=== PATIENT | male | born 1965 | race American Indian/Alaskan Native ===

== ENCOUNTER 2019-03-22 18:57 | Inpatient (IN) | payer MEDICARE ==
[2019-03-22] MEDS ORDERED: ASPIRIN 325 MG TAB PO ONE (20:06)
--- NOTE | 2019-03-22 20:06 | Emergency Department Report ---
ED Chest Pain HPI - General Chief Complaint: Chest Pain Stated Complaint: CHEST PAIN/SHORTNESS OF BREATH Time Seen by Provider: 03/22/19 19:08 Source: patient, EMS Mode of arrival: Stretcher Limitations: No Limitations - History of Present Illness Initial Comments: 53-year-old male with a past medical history of obesity, renal insuf "13% function as per pt" CHF, diabetes, hypertension presents to the hospital with complaints of chest pain and shortness of breath. Symptoms started at approximately 5:30 PM. Patient was eating and drinking at the time. He developed midsternal pain described as pressure lasted about 30 minutes. Positive associated mild shortness of breath, lightheadedness and diaphoresis. He denies nausea, vomiting, cough, fever, or calf tenderness. Patient is visiting from [place] and arrived here car 3 days ago. Patient is having bilateral leg edema. He has been noncompliance with his Lasix for the past 3 days because it was inconvenient to have to urinate frequently during his vacation. Patient feels this is the cause of his shortness of breath and edema. He reports a negative stress test one year ago no previous history of cardiac. He does not smoke cigarettes, use cocaine, denies family history CAD. Does not take aspirin daily. He thinks his Lasix dose is 20 mg twice a day. He denies history of PE/DVT in the past. Patient received aspirin and nitroglycerin in route. - Related Data Allergies Allergy/AdvReac Type Severity Reaction Status Date / Time No Known Allergies Allergy Verified 03/22/19 22:37 Heart Score - HEART Score History: Moderately suspicious EKG: Non-specific Age: 45-65 Risk factors: > 3 risk factors or hx of atherosclerotic disease Troponin: 1-3x normal limit HEART Score: 6 ED Review of Systems ROS: Stated complaint: CHEST PAIN/SHORTNESS OF BREATH Other details as noted in HPI Comment: All other systems reviewed and negative ED Past Medical Hx - Past Medical History Previous Medical History?: Yes Hx Hypertension: Yes Hx Congestive Heart Failure: Yes Hx Diabetes: Yes - Social History Smoking Status: Never Smoker ED Physical Exam - General Limitations: No Limitations - Other Other exam information: General: No acute distress Head: Atraumatic Eyes: normal appearance ENT: Moist mucous membranes Neck: Normal appearance, no midline tenderness Chest: Clear to auscultation bilaterally, chest wall nontender CV: Regular rate and rhythm Abdomen: Soft, normal bowel sounds, nontender, nondistended, no rebound or guarding. Midline vertical surgical scar Back: Normal inspection Extremity: Normal inspection infection, full range of motion, no calf tenderness. +1+ pitting leg edema Neuro: Alert O x 3, no facial asymmetry, speech clear, no gross motor sensory deficit Psych: Appropriate behavior Skin: No rash ED Course Vital Signs 03/22/19 03/22/19 19:26 19:29 Temperature 98.0 F Pulse Rate 93 H Respiratory 18 20 Rate Blood Pressure 149/69 O2 Sat by Pulse 97 88 Oximetry RADHA score - Radha Score Age > 65: (0) No Aspirin use within the Past 7 Days: (0) No 3 or more CAD Risk Factors: (1) Yes 2 or more Angina events in past 24 hrs: (0) No Known CAD with more than 50% Stenosis: (0) No Elevated Cardiac Markers: (1) Yes ST Deviation Greater than 0.5mm: (0) No RADHA Score: 2 ED Medical Decision Making - Lab Data Result diagrams: 03/22/19 20:32 03/22/19 20:32 Lab Results 03/22/19 03/22/19 03/22/19 Range/Units 20:32 20:32 20:32 WBC 7.9 (4.5-11.0) K/mm3 RBC 3.45 L (3.65-5.03) M/mm3 Hgb 8.9 L (11.8-15.2) gm/dl Hct 27.4 L (35.5-45.6) % MCV 80 L (84-94) fl MCH 26 L (28-32) pg MCHC 33 (32-34) % RDW 16.5 H (13.2-15.2) % Plt Count 259 (140-440) K/mm3 Lymph % (Auto) 13.4 (13.4-35.0) % [place] % (Auto) 8.3 H (0.0-7.3) % Eos % (Auto) 1.8 (0.0-4.3) % Baso % (Auto) 0.9 (0.0-1.8) % Lymph # 1.1 L (1.2-5.4) K/mm3 [place] # 0.7 (0.0-0.8) K/mm3 Eos # 0.1 (0.0-0.4) K/mm3 Baso # 0.1 (0.0-0.1) K/mm3 Seg Neutrophils % 75.6 H (40.0-70.0) % Seg Neutrophils # 6.0 (1.8-7.7) K/mm3 PT 13.7 (12.2-14.9) Sec. INR 1.06 (0.87-1.13) Sodium 140 (137-145) mmol/L Potassium 5.3 H (3.6-5.0) mmol/L Chloride 102.8 (98-107) mmol/L Carbon Dioxide 20 L (22-30) mmol/L Anion Gap 23 mmol/L BUN 63 H (9-20) mg/dL Creatinine 6.0 H (0.8-1.5) mg/dL Estimated GFR 10 ml/min BUN/Creatinine Ratio 11 % Glucose 167 H (75-100) mg/dL Calcium 6.4 L (8.4-10.2) mg/dL Troponin T 0.156 H* (0.00-0.029) ng/mL NT-Pro-B Natriuret Pep 466.3 (0-900) pg/mL - EKG Data -: EKG Interpreted by Wi EKG shows normal: sinus rhythm (88), ST-T waves (lat t wave inv) - EKG Data When compared to previous EKG there are: previous EKG unavailable - Radiology Data Radiology results: image reviewed - Medical Decision Making Patient be admitted to the hospital CHF exacerbation. Renal insufficiency noted with unknown baseline but patient had reports a history of chronic renal disease. Elevated troponin likely secondary to renal insufficiency but cannot rule out CAD given abnormal EKG without previous available comparison. Repeat troponin pending. Patient received aspirin in the ED. Chest pain has resolved at time of disposition. Lasix 40 mg provided in ed Mild hyperkalemia without peak T waves. Lasix IV will help with hyperkalemia - Differential Diagnosis [place], PE, CHF, unstable angina, volume overload Critical Care Time: No Critical care attestation.: If time is entered above; I have spent that time in minutes in the direct care of this critically ill patient, excluding procedure time. ED Disposition Clinical Impression: Chest pain, Obesity, morbid, CHF exacerbation, Noncompliance with medication regimen, Elevated troponin, Hyperkalemia, Renal insufficiency Disposition: OP ADMIT IP TO THIS HOSP Is pt being admited?: Yes Does the pt Need Aspirin: Yes Condition: Stable Time of Disposition: 21:35 (Dr Proctor/hosp)
[2019-03-22 20:47] LABS: Basophils # (Auto) 0.1 K/mm3 (0.0-0.1); Basophils % (Auto) 0.9 % (0.0-1.8); Eosinophils # (Auto) 0.1 K/mm3 (0.0-0.4); Eosinophils % (Auto) 1.8 % (0.0-4.3); Hematocrit 27.4 % (35.5-45.6); Hemoglobin 8.9 gm/dl (11.8-15.2); Lymphocytes # (Auto) 1.1 K/mm3 (1.2-5.4); Lymphocytes % (Auto) 13.4 % (13.4-35.0); Mean Corpuscular HGB Conc 33 % (32-34); Mean Corpuscular Volume 80 fl (84-94); Monocytes # (Auto) 0.7 K/mm3 (0.0-0.8); Monocytes % (Auto) 8.3 % (0.0-7.3); Platelet Count 259 K/mm3 (140-440); Red Blood Count 3.45 M/mm3 (3.65-5.03); Red Cell Distribution Width 16.5 % (13.2-15.2)
[2019-03-22 20:58] LABS: INR 1.06 (0.87-1.13)
[2019-03-22 21:10] LABS: Calcium 6.4 mg/dL (8.4-10.2)
[2019-03-22] MEDS ORDERED: FUROSEMIDE 40 MG/4 ML INJ IV ONE (21:25)
[2019-03-22 21:38] LABS: Chol/HDL Ratio 3.57 %
--- NOTE | 2019-03-22 22:36 | History and Physical Report ---
History of Present Illness Date of examination: 03/22/19 History of present illness: 53-year-old man with a history of hypertension, diabetes, CHF, chronic kidney disease, obesity comes emergency room with complaints of shortness of breath and chest pain that started today. Patient recently traveled from [place], he has not taken his Lasix in 3 days because of the inconvenience of increased urination. Denies PND, orthopnea. Complains of chest pain in the epigastric area which he describes a sharp pain, intermittent over 20 minutes, intensity 5/10, no radiation, cannot identify exacerbating factors. Denies nausea vomiting, diaphoresis. He had a stress test 1 year ago which was negative. He has chronic leg pain which is not worsened. Patient has been admitted for CHF exacerbation Review Of Systems: Constitutional: no weight loss, fever, chills Ears, eyes, nose, mouth and throat: no nasal congestion, no nasal discharge, no sinus pressure, blurry vision, diplopia Neck: No neck pain or rigidity. Cardiovascular: No palpitations Respiratory: No cough Gastrointestinal: No hematochezia, abdominal pain Genitourinary : no dysuria, frequency , hematuria Musculoskeletal: no muscle ache , joint pain Integumentary: no rash, no pruritis Neurological: no parathesias, focal weakness Endocrine: no cold or heat intolerance, no polyuria or polydipsia Hematologic/Lymphatic: no easy bruising, no easy bleeding, no gland swelling Allergic/Immunologic: no urticaria, no angioedema. PAST MEDICAL HISTORY:hypertension, diabetes, CHF, chronic kidney disease, obesity PAST SURGICAL HISTORY: abdominal surgery FAMILY HISTORY:hypertension, diabetes SOCIAL HISTORY: Denies tobacco, drugs, alcohol Medications and Allergies Allergies Allergy/AdvReac Type Severity Reaction Status Date / Time No Known Allergies Allergy Verified 03/22/19 22:37 Home Medications Medication Instructions Recorded Confirmed Last Taken Type Furosemide [Lasix TAB] 40 mg PO QDAY 03/22/19 03/22/19 Unknown History labetaloL [Labetalol 100mg TAB] 50 mg PO BID 03/22/19 03/22/19 Unknown History Exam - Physical Exam Narrative exam: General Apperance: The patient sitting in bed no acute distress HEENT: Normocephalic, atraumatic. Pupils equally round and reactive to light, extraocular movement intact, and no sclericterus or JVD or thyromegaly or nodule. Neck supple, no carotid bruit, mucous membranes dry, no exudate or erythema Heart: S1-S2, regular is rhythm Lungs: Crackles bilaterally, breathing comfortable Abdomen: Positive bowel sounds, soft, nontender, nondistended, no organomegaly Extremities: 2+ edema, no cyanosis clubbing Skin: no rash, nodule, warm and dry Neuro:CN 2 -12 intact, motor/sensory intact, speech is fluent - Constitutional Vitals: Temp Pulse Resp BP Pulse Ox 98.0 F 93 H 20 149/69 88 03/22/19 19:26 03/22/19 19:26 03/22/19 19:29 03/22/19 19:26 03/22/19 19:29 Results - Labs CBC & Chem 7: 03/22/19 20:32 03/22/19 20:32 Labs: Abnormal lab results 03/22/19 03/22/19 Range/Units 20:32 20:32 RBC 3.45 L (3.65-5.03) M/mm3 Hgb 8.9 L (11.8-15.2) gm/dl Hct 27.4 L (35.5-45.6) % MCV 80 L (84-94) fl MCH 26 L (28-32) pg RDW 16.5 H (13.2-15.2) % [place] % (Auto) 8.3 H (0.0-7.3) % Lymph # 1.1 L (1.2-5.4) K/mm3 Seg Neutrophils % 75.6 H (40.0-70.0) % Potassium 5.3 H (3.6-5.0) mmol/L Carbon Dioxide 20 L (22-30) mmol/L BUN 63 H (9-20) mg/dL Creatinine 6.0 H (0.8-1.5) mg/dL Glucose 167 H (75-100) mg/dL Calcium 6.4 L (8.4-10.2) mg/dL Troponin T 0.156 H* (0.00-0.029) ng/mL Triglycerides 184 H (2-149) mg/dL HDL Cholesterol 33 L (40-59) mg/dL - Imaging and Cardiology EKG: report reviewed Chest x-ray: report reviewed Assessment and Plan Assessment CHF exacerbation, acute on chronic, probably diastolic Diurese with IV Lasix, start beta-velma, aspirin No IVANA inhibitor secondary to renal dysfunction, unknown renal baseline Check cardiac enzymes, d-dimer echo Monitor I's and O's, daily weights Chest pain with elevated troponin Consult cardiology, continue to monitor cardiac enzymes recent stress test a year ago Hyperkalemia Status post IV Lasix, hold Kayexalate for now Monitor potassium level Hypertension Continue antihypertensives Diabetes Check fingersticks initiate insulin sliding scale Restart outpatient medication Chronic kidney disease Monitor renal function Obesity DVT prophylaxis
[2019-03-22] MEDS ORDERED: ONDANSETRON 4 MG/2 ML INJ IV PRN (22:41)
[2019-03-22] MEDS ORDERED: ACETAMINOPHEN 325 MG TAB PO PRN (22:41)
--- NOTE | 2019-03-22 23:09 | XRay Report ---
CHEST 2 VIEWS INDICATION / CLINICAL INFORMATION: Chest Pain, sob. COMPARISON: None available. FINDINGS: SUPPORT DEVICES: None. HEART / MEDIASTINUM: No significant abnormality. LUNGS / PLEURA: Lung volumes are reduced with secondary crowding of the central vasculature and bibas ilar atelectasis. No significant pleural effusion. No pneumothorax. ADDITIONAL FINDINGS: Degenerative changes are present along the spine. No significant additional find ings. IMPRESSION: 1. No acute abnormality of the chest. 2. Additional findings as above. Signer Name: Mayank Jett MD Signed: 03/22/2019 11:04 PM Workstation Name: [id number]
[2019-03-23 01:11] LABS: Creatine Kinase MB 8.9 ng/mL (0.0-4.0)
[2019-03-23 03:28] LABS: Basophils # (Auto) 0.1 K/mm3 (0.0-0.1); Basophils % (Auto) 0.7 % (0.0-1.8); Eosinophils # (Auto) 0.2 K/mm3 (0.0-0.4); Eosinophils % (Auto) 2.5 % (0.0-4.3); Hematocrit 27.8 % (35.5-45.6); Lymphocytes # (Auto) 1.5 K/mm3 (1.2-5.4); Lymphocytes % (Auto) 20.2 % (13.4-35.0); Mean Corpuscular HGB Conc 32 % (32-34); Mean Corpuscular Volume 81 fl (84-94); Monocytes # (Auto) 0.7 K/mm3 (0.0-0.8); Monocytes % (Auto) 9.1 % (0.0-7.3); Platelet Count 276 K/mm3 (140-440); Red Blood Count 3.45 M/mm3 (3.65-5.03); Red Cell Distribution Width 16.2 % (13.2-15.2)
[2019-03-23 03:59] LABS: Calcium 6.3 mg/dL (8.4-10.2)
[2019-03-23] MEDS: FUROSEMIDE 40 MG/4 ML INJ IV SCH ×2 (05:52→17:07)
[2019-03-23 07:13] LABS: Creatine Kinase MB 8.5 ng/mL (0.0-4.0)
[2019-03-23] MEDS ORDERED: DEXTROSE 50% IN WATER (25GM) 50 ML SYRINGE IV PRN (08:47)
--- NOTE | 2019-03-23 08:50 | Progress Note ---
Assessment and Plan Assessment and plan: Patient is a 53-year-old man with a history of hypertension, diabetes, CHF, chronic kidney disease, obesity comes emergency room with complaints of shortness of breath and chest pain that started today. Patient recently traveled from [place], he has not taken his Lasix in 3 days because of the inconvenience of increased urination. CHF exacerbation, acute on chronic, diastolic Diurese with IV Lasix, start beta-velma, aspirin No IVANA inhibitor secondary to renal dysfunction, unknown renal baseline Check cardiac enzymes, d-dimer echo Monitor I's and O's, daily weights Chest pain with elevated troponin c/w NSTEMI Consult cardiology, continue to monitor cardiac enzymes stress test on MONDAY per Cardiology Hyperkalemia Status post IV Lasix, hold Kayexalate for now Monitor potassium level Hypertension Continue antihypertensives Diabetes melltius Check fingersticks initiate insulin sliding scale Restart outpatient medication Chronic kidney disease stage 3, Monitor renal function Obesity DVT prophylaxis Disposition: continue inpatient care, STRESS TEST on Monday per Cardiology History Interval history: Patient was seen and examined. Follow-up on current diagnosis. No overnight events reported to me. Patient denies any chest pain, shortness breath, nausea/vomiting or severe headaches. Imaging, nursing note, chart, labs and old chart reviewed. Discussed with patient. Hospitalist Physical - Physical exam Narrative exam: Gen: WDWN, NAD, Awake, Alert, Orientated HEENT: NCAT, EOMI, PERRL, OP Clear Neck: supple, no adenopathy, no thyromegaly, no JVD CVS/Heart: RRR, normal S1S2, pulses present bilaterally Chest/Lungs: diminished bs bilateral, Symmetrical chest expansion, good air entry bilaterally GI/Abdomen: soft, NTND, good bowel sounds, no guarding or rebound /Bladder: no suprapubic tenderness, no CVA or paraspinal tenderness Extermity/Skin: no c/c/e, no obvious rash MSK: FROM x 4 Neuro: CN 2-12 grossly intact, no new focal deficits Psych: calm - Constitutional Vitals: Temp Pulse Resp BP Pulse Ox 98.3 F 92 H 27 H 137/69 96 03/23/19 05:00 03/23/19 05:00 03/23/19 05:00 03/23/19 05:00 03/23/19 05:00 Results - Labs CBC & Chem 7: 03/23/19 03:00 03/23/19 03:00 Labs: Laboratory Last Values WBC 7.6 K/mm3 (4.5-11.0) 03/23/19 03:00 RBC 3.45 M/mm3 (3.65-5.03) L 03/23/19 03:00 Hgb 9.0 gm/dl (11.8-15.2) L 03/23/19 03:00 Hct 27.8 % (35.5-45.6) L 03/23/19 03:00 MCV 81 fl (84-94) L 03/23/19 03:00 MCH 26 pg (28-32) L 03/23/19 03:00 MCHC 32 % (32-34) 03/23/19 03:00 RDW 16.2 % (13.2-15.2) H 03/23/19 03:00 Plt Count 276 K/mm3 (140-440) 03/23/19 03:00 Lymph % (Auto) 20.2 % (13.4-35.0) 03/23/19 03:00 [place] % (Auto) 9.1 % (0.0-7.3) H 03/23/19 03:00 Eos % (Auto) 2.5 % (0.0-4.3) 03/23/19 03:00 Baso % (Auto) 0.7 % (0.0-1.8) 03/23/19 03:00 Lymph # 1.5 K/mm3 (1.2-5.4) 03/23/19 03:00 [place] # 0.7 K/mm3 (0.0-0.8) 03/23/19 03:00 Eos # 0.2 K/mm3 (0.0-0.4) 03/23/19 03:00 Baso # 0.1 K/mm3 (0.0-0.1) 03/23/19 03:00 Seg Neutrophils % 67.5 % (40.0-70.0) 03/23/19 03:00 Seg Neutrophils # 5.1 K/mm3 (1.8-7.7) 03/23/19 03:00 PT 13.7 Sec. (12.2-14.9) 03/22/19 20:32 INR 1.06 (0.87-1.13) 03/22/19 20:32 D-Dimer 526.09 ng/mlDDU (0-234) H 03/23/19 00:33 Sodium 142 mmol/L (137-145) 03/23/19 03:00 Potassium 5.5 mmol/L (3.6-5.0) H 03/23/19 03:00 Chloride 105.4 mmol/L (98-107) 03/23/19 03:00 Carbon Dioxide 24 mmol/L (22-30) 03/23/19 03:00 Anion Gap 18 mmol/L 03/23/19 03:00 BUN 62 mg/dL (9-20) H 03/23/19 03:00 Creatinine 5.9 mg/dL (0.8-1.5) H 03/23/19 03:00 Estimated GFR 12 ml/min 03/23/19 03:00 BUN/Creatinine Ratio 11 % 03/23/19 03:00 Glucose 192 mg/dL (75-100) H 03/23/19 03:00 Calcium 6.3 mg/dL (8.4-10.2) L 03/23/19 03:00 Total Creatine Kinase 860 units/L (55-170) H 03/23/19 06:14 CK-MB (CK-2) 8.5 ng/mL (0.0-4.0) H 03/23/19 06:14 CK-MB (CK-2) Rel Index 0.9 (0-4) 03/23/19 06:14 Troponin T 0.141 ng/mL (0.00-0.029) H* 03/23/19 06:14 NT-Pro-B Natriuret Pep 466.3 pg/mL (0-900) 03/22/19 20:32 Triglycerides 184 mg/dL (2-149) H 03/22/19 20:32 Cholesterol 118 mg/dL (50-199) 03/22/19 20:32 LDL Cholesterol Direct 69 mg/dL (50-130) 03/22/19 20:32 HDL Cholesterol 33 mg/dL (40-59) L 03/22/19 20:32 Cholesterol/HDL Ratio 3.57 % 03/22/19 20:32 Active Medications - Current Medications Current Medications: Generic Name Dose Route Start Last Admin Trade Name Freq PRN Reason Stop Dose Admin Acetaminophen 650 mg 03/22/19 22:41 Tylenol PO Q4H PRN Pain MILD(1-3)/Fever >100.5/VIDES Aspirin 81 mg 03/23/19 10:00 Baby Aspirin PO QDAY [facility] Dextrose 50 ml 03/23/19 08:47 D50w (25gm) Syringe IV Q30MIN PRN Hypoglycemia Protocol Enoxaparin Sodium 30 mg 03/23/19 10:00 Enoxaparin SUB-Q QDAY [facility] Furosemide 40 mg 03/23/19 06:00 03/23/19 05:52 Lasix IV 40 mg BID@0600,1800 [facility] Administration Insulin Human Regular 0 units 03/23/19 11:30 Humulin R SUB-Q ACHS [facility] Protocol Metoprolol Tartrate 25 mg 03/23/19 10:00 Metoprolol PO BID [facility] Ondansetron HCl 4 mg 03/22/19 22:41 Zofran IV Q8H PRN Nausea And Vomiting Sodium Chloride 10 ml 03/23/19 10:00 Sodium Chloride Flush Syringe 10 Ml IV BID FRANCIS Sodium Chloride 10 ml 03/22/19 22:41 Sodium Chloride Flush Syringe 10 Ml IV PRN PRN LINE FLUSH
[2019-03-23] MEDS: METOPROLOL TARTRATE 25 MG TAB PO SCH ×2 (10:09→21:56)
[2019-03-23] MEDS: ENOXAPARIN 30 MG/0.3 ML INJ SUB-Q SCH (10:10)
[2019-03-23] MEDS: ASPIRIN 81 MG TAB CHEW PO SCH (10:10)
[2019-03-23] MEDS: INSULIN REGULAR, HUMAN 100 UNITS/1 ML SUB-Q SCH ×3 (12:46→22:13)
--- NOTE | 2019-03-23 13:52 | Consultation ---
History of Present Illness Consult date: 03/23/19 Requesting physician: CLIFFORD ZURITA Consult reason: chest pain, congestive heart failure History of present illness: Mr. Barbosa is a 53 y/o male who presented to [facility] with SOB and chest pain that began yesterday evening. He reports he was eating at a restaurant and suddenly felt dizzy and lightheaded, almost falling in the bathroom. He experienced sharp, midsternal chest pain at that time that re solved with rest. When he returned home, he became acutely SOB and again experienced similar sharp chest pain. His medical history is significant for hypertension, CHF, CKD and type 2 diabetes; of note, he reports three days of noncompliance with his home Lasix. He was [place] to [place] and did not want to void frequently. 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 EKG NAF, but troponins elevated to 0.156, 0.134 and 0.141. Echocardiogram on 03/23/19 found an EF of 55 percent, LVH and LA dilation. Past History Past Medical History: diabetes, heart failure, hypertension, other (obesity, CKD) Medications and Allergies Allergies Allergy/AdvReac Type Severity Reaction Status Date / Time No Known Allergies Allergy Verified 03/22/19 22:37 Home Medications Medication Instructions Recorded Confirmed Last Taken Type Furosemide [Lasix TAB] 40 mg PO QDAY 03/22/19 03/22/19 Unknown History labetaloL [Labetalol 100mg TAB] 50 mg PO BID 03/22/19 03/22/19 Unknown History Active Meds: Active Medications Acetaminophen (Tylenol) 650 mg PO Q4H PRN PRN Reason: Pain MILD(1-3)/Fever >100.5/VIDES Aspirin (Baby Aspirin) 81 mg PO QDAY [facility] Last Admin: 03/23/19 10:10 Dose: 81 mg Documented by: Dextrose (D50w (25gm) Syringe) 50 ml IV Q30MIN PRN; Protocol PRN Reason: Hypoglycemia Enoxaparin Sodium (Enoxaparin) 30 mg SUB-Q QDAY [facility] Last Admin: 03/23/19 10:10 Dose: 30 mg Documented by: Furosemide (Lasix) 40 mg IV BID@0600,1800 [facility] Last Admin: 03/23/19 05:52 Dose: 40 mg Documented by: Insulin Human Regular (Humulin R) 0 units SUB-Q ACHS [facility]; Protocol Last Admin: 03/23/19 12:46 Dose: 3 units Documented by: Metoprolol Tartrate (Metoprolol) 25 mg PO BID [facility] Last Admin: 03/23/19 10:09 Dose: 25 mg Documented by: Ondansetron HCl (Zofran) 4 mg IV Q8H PRN PRN Reason: Nausea And Vomiting Sodium Chloride (Sodium Chloride Flush Syringe 10 Ml) 10 ml IV BID [facility] Last Admin: 03/23/19 10:11 Dose: 10 ml Documented by: Sodium Chloride (Sodium Chloride Flush Syringe 10 Ml) 10 ml IV PRN PRN PRN Reason: LINE FLUSH Review of Systems All systems: negative Cardiovascular: chest pain, shortness of breath Physical Examination Last Vital Signs Temp 98.3 F 03/23/19 05:00 Pulse 91 H 03/23/19 10:09 Resp 18 03/23/19 11:40 BP 158/78 03/23/19 10:09 Pulse Ox 98 03/23/19 11:40 General appearance: no acute distress HEENT: Positive: PERRL Neck: Positive: neck supple Cardiac: Positive: Reg Rate and Rhythm Lungs: Positive: Decreased Breath Sounds Neuro: Positive: Grossly Intact Abdomen: Positive: Firm, Distended, Other Male genitourinary: Positive: deferred Skin: Positive: Clear Musculoskeletal: Normal Range of Motion Extremities: Present: edema, +1 Edema Results 03/23/19 03:00 03/23/19 03:00 Cardiac Enzymes 03/23/19 03/23/19 Range/Units 00:33 06:14 CK-MB (CK-2) 8.9 H 8.5 H (0.0-4.0) ng/mL Coagulation 03/22/19 Range/Units 20:32 PT 13.7 (12.2-14.9) Sec. INR 1.06 (0.87-1.13) Lipids 03/22/19 Range/Units 20:32 Triglycerides 184 H (2-149) mg/dL Cholesterol 118 (50-199) mg/dL HDL Cholesterol 33 L (40-59) mg/dL Cholesterol/HDL Ratio 3.57 % CBC 03/22/19 03/23/19 Range/Units 20:32 03:00 WBC 7.9 7.6 (4.5-11.0) K/mm3 RBC 3.45 L 3.45 L (3.65-5.03) M/mm3 Hgb 8.9 L 9.0 L (11.8-15.2) gm/dl Hct 27.4 L 27.8 L (35.5-45.6) % Plt Count 259 276 (140-440) K/mm3 Lymph # 1.1 L 1.5 (1.2-5.4) K/mm3 [place] # 0.7 0.7 (0.0-0.8) K/mm3 Eos # 0.1 0.2 (0.0-0.4) K/mm3 Baso # 0.1 0.1 (0.0-0.1) K/mm3 Comprehensive Metabolic Panel 03/22/19 03/23/19 Range/Units 20:32 03:00 Sodium 140 142 (137-145) mmol/L Potassium 5.3 H 5.5 H (3.6-5.0) mmol/L Chloride 102.8 105.4 (98-107) mmol/L Carbon Dioxide 20 L 24 (22-30) mmol/L BUN 63 H 62 H (9-20) mg/dL Creatinine 6.0 H 5.9 H (0.8-1.5) mg/dL Glucose 167 H 192 H (75-100) mg/dL Calcium 6.4 L 6.3 L (8.4-10.2) mg/dL - Imaging and Cardiology Echo: report reviewed (03/23/19: EF 55%, LA dilation, LVH) - EKG Interpretation EKG: sinus rhythm EKG interpretations - Telemetry EKG Rhythm: Sinus Rhythm Repolarization changes or abnormalities: nonspecific abnormality, ST segment, and/or T wave Assessment and Plan Mr. Barbosa is a 53 y/o male admitted with SOB and CP. Troponin elevation c/w NSTEMI, but cardiac etiology is unclear. Will obtain follow-up stress test on Monday, since patient reports he has not undergone one in several years. Will add hydralazine to optimize blood pressure control. Continue diuresis and other cardiac management for now. Further recommendations pending hospital course. The patient has been seen in conjunction with Dr. Hunt, who agrees with the assessment and plan. - Patient Problems (1) NSTEMI (non-ST elevated myocardial infarction) Current Visit: Yes Status: Acute (2) Acute on chronic heart failure Current Visit: Yes Status: Acute (3) Chest pain Current Visit: Yes Status: Acute (4) Noncompliance with medication regimen Current Visit: Yes Status: Acute (5) Renal insufficiency Current Visit: Yes Status: Acute (6) Obesity, morbid Current Visit: Yes Status: Chronic (7) Diabetes Current Visit: Yes Status: Chronic (8) Hypertension Current Visit: Yes Status: Chronic
[2019-03-23] MEDS: hydrALAZINE 25 MG TAB PO SCH ×2 (14:13→21:56)
[2019-03-24] MEDS: FUROSEMIDE 40 MG/4 ML INJ IV SCH ×2 (05:25→17:49)
[2019-03-24] MEDS: hydrALAZINE 25 MG TAB PO SCH ×3 (05:27→21:18)
[2019-03-24] MEDS: INSULIN REGULAR, HUMAN 100 UNITS/1 ML SUB-Q SCH ×4 (08:00→22:35)
[2019-03-24] MEDS: ASPIRIN 81 MG TAB CHEW PO SCH (10:40)
[2019-03-24] MEDS: ENOXAPARIN 30 MG/0.3 ML INJ SUB-Q SCH (10:40)
[2019-03-24] MEDS: METOPROLOL TARTRATE 25 MG TAB PO SCH ×2 (10:40→21:23)
--- NOTE | 2019-03-24 12:41 | Progress Note ---
Assessment and Plan Cardiac status is improved. Will schedule Lexiscan stress test for tomorrow; however, body habitus may be prohibitive. Will obtain BMP today and tomorrow. Will increase hydralazine. May possibly transition to PO diuretics tomorrow. Continue other cardiac management for now. - Patient Problems (1) NSTEMI (non-ST elevated myocardial infarction) Current Visit: Yes Status: Acute (2) Acute on chronic heart failure Current Visit: Yes Status: Acute (3) Chest pain Current Visit: Yes Status: Acute (4) Noncompliance with medication regimen Current Visit: Yes Status: Acute (5) Renal insufficiency Current Visit: Yes Status: Acute (6) Obesity, morbid Current Visit: Yes Status: Chronic (7) Diabetes Current Visit: Yes Status: Chronic (8) Hypertension Current Visit: Yes Status: Chronic Subjective Date of service: 03/24/19 Interval history: The patient is lying in bed in [facility]. He is now free of chest pain and has no other complaints. SR in 80s on telemetry. Objective Last Vital Signs Temp 98.1 F 03/24/19 08:13 Pulse 87 03/24/19 08:13 Resp 20 03/24/19 08:13 BP 147/67 03/24/19 08:13 Pulse Ox 97 03/24/19 08:26 - Physical Examination General: No Apparent Distress HEENT: Positive: PERRL Neck: Positive: neck supple Cardiac: Positive: Reg Rate and Rhythm Lungs: Positive: Decreased Breath Sounds Neuro: Positive: Grossly Intact Abdomen: Positive: Soft /Rectal: Other (deferred) Skin: Positive: Clear Musculoskeletal: Normal Range of Motion Extremities: Present: edema, +1 Edema - Imaging and Cardiology EKG: report reviewed Echo: report reviewed (03/23/19: EF 55%, LA dilation, LVH) - Telemetry EKG Rhythm: Sinus Rhythm Repolarization changes or abnormalities: nonspecific abnormality, ST segment, and/or T wave
--- NOTE | 2019-03-24 16:24 | Consultation ---
History of Present Illness - Reason for Consult Consult date: 03/24/19 chronic renal failure - History of Present Illness Mr. Barbosa is a 53yo with chronic kidney disease, CHF and hypertension who presented to the ED on Mar 22 with complaints of chest pain and shortness of breath. He reports sternal chest pressure associated with SOB. He denies nausea, vomiting. He denies cough and fever. He reports chronic leg edema. Mr. Barbosa reports a 20 year history of HTN and DM. He reports that CKD was diagnosed appx 3 years ago. He is followed by a puddler pile driving, Dr Hurley, in [place] where he resides. Mr. Barbosa reports that he is "on the verge of dialysis" and sees his puddler pile driving monthly. His last visit was prior . He denies a family history of kidney disease. Presently, he reports SOB has improved. Nephrology consultation requested this AM by primary team. Past History Past Medical History: diabetes, heart failure, hypertension, other (obesity, CKD) Medications and Allergies Allergies Allergy/AdvReac Type Severity Reaction Status Date / Time No Known Allergies Allergy Verified 03/22/19 22:37 Home Medications Medication Instructions Recorded Confirmed Last Taken Type Furosemide [Lasix TAB] 40 mg PO QDAY 03/22/19 03/22/19 Unknown History labetaloL [Labetalol 100mg TAB] 50 mg PO BID 03/22/19 03/22/19 Unknown History Active Meds: Active Medications Acetaminophen (Tylenol) 650 mg PO Q4H PRN PRN Reason: Pain MILD(1-3)/Fever >100.5/VIDES Aspirin (Baby Aspirin) 81 mg PO QDAY [facility] Last Admin: 03/24/19 10:40 Dose: 81 mg Documented by: Dextrose (D50w (25gm) Syringe) 50 ml IV Q30MIN PRN; Protocol PRN Reason: Hypoglycemia Enoxaparin Sodium (Enoxaparin) 30 mg SUB-Q QDAY [facility] Last Admin: 03/24/19 10:40 Dose: 30 mg Documented by: Furosemide (Lasix) 40 mg IV BID@0600,1800 [facility] Last Admin: 03/24/19 05:25 Dose: 40 mg Documented by: Hydralazine HCl (Apresoline) 50 mg PO Q8HR [facility] Insulin Human Regular (Humulin R) 0 units SUB-Q [facility]; Protocol Last Admin: 03/24/19 13:00 Dose: 2 units Documented by: Metoprolol Tartrate (Metoprolol) 25 mg PO BID [facility] Last Admin: 03/24/19 10:40 Dose: 25 mg Documented by: Ondansetron HCl (Zofran) 4 mg IV Q8H PRN PRN Reason: Nausea And Vomiting Sodium Chloride (Sodium Chloride Flush Syringe 10 Ml) 10 ml IV BID [facility] Last Admin: 03/24/19 15:38 Dose: 10 ml Documented by: Sodium Chloride (Sodium Chloride Flush Syringe 10 Ml) 10 ml IV PRN PRN PRN Reason: LINE FLUSH Review of Systems All systems: negative Exam - Vital Signs Vital signs: Vital Signs Pulse Resp Pulse Ox 93 H 15 97 03/22/19 19:22 03/22/19 19:22 03/22/19 19:22 - General Appearance General appearance: well-developed, well-nourished, obese EENT: ATNC Respiratory: Clear to Ascultation Heart: regular, S1S2 Gastrointestinal: Present: obese Integumentary: no rash, warm and dry Neurologic: no focal deficit, alert and oriented x3 Musculoskeletal: Present: other (1+ edema) Psychiatric: cooperative Results - Lab Results 03/23/19 03:00 03/23/19 03:00 Most recent lab results Calcium 6.3 mg/dL (8.4-10.2) L 03/23/19 03:00 Assessment and Plan Impression: * 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 Given body habitus, eGFR likely underestimates patient's renal function. Continue close monitoring. * Continue IV diuresis * Cardiology recs noted - for stress test tomorrow * Medical management of electrolytes * Renal diet * Obtain iron stores w/ AM labs * Obtain PTH * Start Drisdol weekly and calcitriol * Dose medications for renal function * Avoid potential nephrotoxins * Patient resides in [place] where he plans to return on Apr 06. Advised close follow up with his puddler pile driving.
--- NOTE | 2019-03-24 16:35 | Progress Note ---
Assessment and Plan Assessment and plan: Patient is a 53-year-old man with a history of hypertension, diabetes, CHF, chronic kidney disease, obesity comes emergency room with complaints of shortness of breath and chest pain that started today. Patient recently traveled from [place], he has not taken his Lasix in 3 days because of the inconvenience of increased urination. CHF exacerbation, acute on chronic, diastolic Diurese with IV Lasix, start beta-velma, aspirin No IVANA inhibitor secondary to renal dysfunction, unknown renal baseline Check cardiac enzymes, d-dimer echo Monitor I's and O's, daily weights Chest pain with elevated troponin c/w NSTEMI Consult cardiology, continue to monitor cardiac enzymes stress test on MONDAY per Cardiology Hyperkalemia Status post IV Lasix, hold Kayexalate for now Monitor potassium level Hypertension Continue antihypertensives Diabetes mellitus Check fingersticks initiate insulin sliding scale Restart outpatient medication Chronic kidney disease stage 3, Monitor renal function Obesity DVT prophylaxis Disposition: continue inpatient care, STRESS TEST on Monday per Cardiology trying to wean off 2 liters nasal canula, d/w nursing History Interval history: Patient was seen and examined. Follow-up on current diagnosis. No overnight events reported to me. Patient denies any chest pain, shortness breath, nausea/vomiting or severe headaches. Imaging, nursing note, chart, labs and old chart reviewed. Discussed with patient. Hospitalist Physical - Physical exam Narrative exam: Gen: WDWN, NAD, Awake, Alert, Orientated, bmi 41.1 HEENT: NCAT, EOMI, PERRL, OP Clear Neck: supple, no adenopathy, no thyromegaly, no JVD CVS/Heart: RRR, normal S1S2, pulses present bilaterally Chest/Lungs: diminished bs bilateral, Symmetrical chest expansion, good air entry bilaterally GI/Abdomen: soft, large protuberant abdomen, good bowel sounds, no guarding or rebound /Bladder: no suprapubic tenderness, no CVA or paraspinal tenderness Extermity/Skin: trace leg edema, no obvious rash MSK: FROM x 4 Neuro: CN 2-12 grossly intact, no new focal deficits Psych: calm - Constitutional Vitals: Temp Pulse Resp BP Pulse Ox 98.1 F 87 20 147/67 97 03/24/19 08:13 03/24/19 08:13 03/24/19 08:13 03/24/19 08:13 03/24/19 08:26 General appearance: Present: no acute distress Results - Labs CBC & Chem 7: 03/23/19 03:00 03/23/19 03:00 Labs: Laboratory Last Values WBC 7.6 K/mm3 (4.5-11.0) 03/23/19 03:00 RBC 3.45 M/mm3 (3.65-5.03) L 03/23/19 03:00 Hgb 9.0 gm/dl (11.8-15.2) L 03/23/19 03:00 Hct 27.8 % (35.5-45.6) L 03/23/19 03:00 MCV 81 fl (84-94) L 03/23/19 03:00 MCH 26 pg (28-32) L 03/23/19 03:00 MCHC 32 % (32-34) 03/23/19 03:00 RDW 16.2 % (13.2-15.2) H 03/23/19 03:00 Plt Count 276 K/mm3 (140-440) 03/23/19 03:00 Lymph % (Auto) 20.2 % (13.4-35.0) 03/23/19 03:00 [place] % (Auto) 9.1 % (0.0-7.3) H 03/23/19 03:00 Eos % (Auto) 2.5 % (0.0-4.3) 03/23/19 03:00 Baso % (Auto) 0.7 % (0.0-1.8) 03/23/19 03:00 Lymph # 1.5 K/mm3 (1.2-5.4) 03/23/19 03:00 [place] # 0.7 K/mm3 (0.0-0.8) 03/23/19 03:00 Eos # 0.2 K/mm3 (0.0-0.4) 03/23/19 03:00 Baso # 0.1 K/mm3 (0.0-0.1) 03/23/19 03:00 Seg Neutrophils % 67.5 % (40.0-70.0) 03/23/19 03:00 Seg Neutrophils # 5.1 K/mm3 (1.8-7.7) 03/23/19 03:00 PT 13.7 Sec. (12.2-14.9) 03/22/19 20:32 INR 1.06 (0.87-1.13) 03/22/19 20:32 D-Dimer 526.09 ng/mlDDU (0-234) H 03/23/19 00:33 Sodium 142 mmol/L (137-145) 03/23/19 03:00 Potassium 5.5 mmol/L (3.6-5.0) H 03/23/19 03:00 Chloride 105.4 mmol/L (98-107) 03/23/19 03:00 Carbon Dioxide 24 mmol/L (22-30) 03/23/19 03:00 Anion Gap 18 mmol/L 03/23/19 03:00 BUN 62 mg/dL (9-20) H 03/23/19 03:00 Creatinine 5.9 mg/dL (0.8-1.5) H 03/23/19 03:00 Estimated GFR 12 ml/min 03/23/19 03:00 BUN/Creatinine Ratio 11 % 03/23/19 03:00 Glucose 192 mg/dL (75-100) H 03/23/19 03:00 POC Glucose 220 (70-105) H 03/24/19 12:11 Calcium 6.3 mg/dL (8.4-10.2) L 03/23/19 03:00 Total Creatine Kinase 860 units/L (55-170) H 03/23/19 06:14 CK-MB (CK-2) 8.5 ng/mL (0.0-4.0) H 03/23/19 06:14 CK-MB (CK-2) Rel Index 0.9 (0-4) 03/23/19 06:14 Troponin T 0.141 ng/mL (0.00-0.029) H* 03/23/19 06:14 NT-Pro-B Natriuret Pep 466.3 pg/mL (0-900) 03/22/19 20:32 Triglycerides 184 mg/dL (2-149) H 03/22/19 20:32 Cholesterol 118 mg/dL (50-199) 03/22/19 20:32 LDL Cholesterol Direct 69 mg/dL (50-130) 03/22/19 20:32 HDL Cholesterol 33 mg/dL (40-59) L 03/22/19 20:32 Cholesterol/HDL Ratio 3.57 % 03/22/19 20:32 Active Medications - Current Medications Current Medications: Generic Name Dose Route Start Last Admin Trade Name Freq PRN Reason Stop Dose Admin Acetaminophen 650 mg 03/22/19 22:41 Tylenol PO Q4H PRN Pain MILD(1-3)/Fever >100.5/VIDES Aspirin 81 mg 03/23/19 10:00 03/24/19 10:40 Baby Aspirin PO 81 mg QDAY [facility] Administration Dextrose 50 ml 03/23/19 08:47 D50w (25gm) Syringe IV Q30MIN PRN Hypoglycemia Protocol Enoxaparin Sodium 30 mg 03/23/19 10:00 03/24/19 10:40 Enoxaparin SUB-Q 30 mg QDAY [facility] Administration Furosemide 40 mg 03/23/19 06:00 03/24/19 05:25 Lasix IV 40 mg BID@0600,1800 [facility] Administration Hydralazine HCl 50 mg 03/24/19 14:00 03/24/19 16:27 Apresoline PO 50 mg Q8HR [facility] Administration Insulin Human Regular 0 units 03/23/19 11:30 03/24/19 13:00 Humulin R SUB-Q 2 units [facility] Administration Protocol Metoprolol Tartrate 25 mg 03/23/19 10:00 03/24/19 10:40 Metoprolol PO 25 mg BID [facility] Administration Ondansetron HCl 4 mg 03/22/19 22:41 Zofran IV Q8H PRN Nausea And Vomiting Sodium Chloride 10 ml 03/23/19 10:00 03/24/19 15:38 Sodium Chloride Flush Syringe 10 Ml IV 10 ml BID [facility] Administration Sodium Chloride 10 ml 03/22/19 22:41 Sodium Chloride Flush Syringe 10 Ml IV PRN PRN LINE FLUSH
[2019-03-24] MEDS: CALCITRIOL 0.5 MCG CAP PO SCH (21:22)
[2019-03-25] MEDS: FUROSEMIDE 40 MG/4 ML INJ IV SCH (05:26)
[2019-03-25] MEDS: hydrALAZINE 25 MG TAB PO SCH (05:27)
[2019-03-25 06:38] LABS: Basophils # (Auto) 0.1 K/mm3 (0.0-0.1); Eosinophils # (Auto) 0.2 K/mm3 (0.0-0.4); Eosinophils % (Auto) 3.3 % (0.0-4.3); Hematocrit 30.8 % (35.5-45.6); Hemoglobin 10.1 gm/dl (11.8-15.2); Lymphocytes # (Auto) 1.4 K/mm3 (1.2-5.4); Lymphocytes % (Auto) 21.4 % (13.4-35.0); Mean Corpuscular HGB Conc 33 % (32-34); Mean Corpuscular Volume 79 fl (84-94); Monocytes # (Auto) 0.5 K/mm3 (0.0-0.8); Platelet Count 330 K/mm3 (140-440); Red Blood Count 3.88 M/mm3 (3.65-5.03); Red Cell Distribution Width 16.2 % (13.2-15.2)
[2019-03-25 07:04] LABS: % Iron Saturation 16.73 %; Calcium 6.6 mg/dL (8.4-10.2)
[2019-03-25] MEDS ORDERED: REGADENOSON 0.4 MG/5 ML INJ IV ONE ×3 (07:07→14:22)
[2019-03-25 08:12] VITALS: BP 156/78
[2019-03-25] MEDS: INSULIN REGULAR, HUMAN 100 UNITS/1 ML SUB-Q SCH (08:27)
[2019-03-25] MEDS: CALCITRIOL 0.5 MCG CAP PO SCH (10:26)
[2019-03-25] MEDS: METOPROLOL TARTRATE 25 MG TAB PO SCH (10:26)
[2019-03-25] MEDS: ENOXAPARIN 30 MG/0.3 ML INJ SUB-Q SCH (10:26)
[2019-03-25] MEDS: ASPIRIN 81 MG TAB CHEW PO SCH (10:26)
--- NOTE | 2019-03-25 13:47 | Progress Note ---
Assessment and Plan Assessment and plan: Patient is a 53-year-old man with a history of hypertension, diabetes, CHF, chronic kidney disease, obesity comes emergency room with complaints of shortness of breath and chest pain that started today. Patient recently traveled from [place], he has not taken his Lasix in 3 days because of the inconvenience of increased urination. CHF exacerbation, acute on chronic, diastolic Diurese with IV Lasix, start beta-velma, aspirin No IVANA inhibitor secondary to renal dysfunction, unknown renal baseline Check cardiac enzymes, d-dimer echo Monitor I's and O's, daily weights Chest pain with elevated troponin c/w NSTEMI Consult cardiology, continue to monitor cardiac enzymes stress test on MONDAY per Cardiology Hyperkalemia Status post IV Lasix, hold Kayexalate for now Monitor potassium level Hypertension Continue antihypertensives Diabetes mellitus Check fingersticks initiate insulin sliding scale Restart outpatient medication Chronic kidney disease stage 3, Monitor renal function Obesity DVT prophylaxis Disposition: continue inpatient care, STRESS TEST on Monday per Cardiology trying to wean off 2 liters nasal canula, d/w nursing patient refuses stress test, counseling against this including increase risk, patient voiced understanding but still want to leave AMA. He is from [facility] and he wants to start HD there and get testing there. He is just visiting. History Interval history: Patient was seen and examined. Follow-up on current diagnosis. No overnight events reported to me. Patient denies any chest pain, shortness breath, nausea/vomiting or severe headaches. Imaging, nursing note, chart, labs and old chart reviewed. Discussed with patient. Hospitalist Physical - Physical exam Narrative exam: Gen: WDWN, NAD, Awake, Alert, Orientated, bmi 41.1 HEENT: NCAT, EOMI, PERRL, OP Clear Neck: supple, no adenopathy, no thyromegaly, no JVD CVS/Heart: RRR, normal S1S2, pulses present bilaterally Chest/Lungs: diminished bs bilateral, Symmetrical chest expansion, good air entry bilaterally GI/Abdomen: soft, large protuberant abdomen, good bowel sounds, no guarding or r ebound /Bladder: no suprapubic tenderness, no CVA or paraspinal tenderness Extermity/Skin: trace leg edema, no obvious rash MSK: FROM x 4 Neuro: CN 2-12 grossly intact, no new focal deficits Psych: calm - Constitutional Vitals: Temp Pulse Resp BP Pulse Ox 98.5 F 79 18 156/78 94 03/25/19 08:11 03/25/19 08:11 03/25/19 08:11 03/25/19 08:11 03/25/19 08:11 General appearance: Present: no acute distress Results - Labs CBC & Chem 7: 03/25/19 05:42 03/25/19 05:42 Labs: Laboratory Last Values WBC 6.7 K/mm3 (4.5-11.0) 03/25/19 05:42 RBC 3.88 M/mm3 (3.65-5.03) 03/25/19 05:42 Hgb 10.1 gm/dl (11.8-15.2) L 03/25/19 05:42 Hct 30.8 % (35.5-45.6) L 03/25/19 05:42 MCV 79 fl (84-94) L 03/25/19 05:42 MCH 26 pg (28-32) L 03/25/19 05:42 MCHC 33 % (32-34) 03/25/19 05:42 RDW 16.2 % (13.2-15.2) H 03/25/19 05:42 Plt Count 330 K/mm3 (140-440) 03/25/19 05:42 Lymph % (Auto) 21.4 % (13.4-35.0) 03/25/19 05:42 [place] % (Auto) 8.0 % (0.0-7.3) H 03/25/19 05:42 Eos % (Auto) 3.3 % (0.0-4.3) 03/25/19 05:42 Baso % (Auto) 1.0 % (0.0-1.8) 03/25/19 05:42 Lymph # 1.4 K/mm3 (1.2-5.4) 03/25/19 05:42 [place] # 0.5 K/mm3 (0.0-0.8) 03/25/19 05:42 Eos # 0.2 K/mm3 (0.0-0.4) 03/25/19 05:42 Baso # 0.1 K/mm3 (0.0-0.1) 03/25/19 05:42 Seg Neutrophils % 66.3 % (40.0-70.0) 03/25/19 05:42 Seg Neutrophils # 4.5 K/mm3 (1.8-7.7) 03/25/19 05:42 PT 13.7 Sec. (12.2-14.9) 03/22/19 20:32 INR 1.06 (0.87-1.13) 03/22/19 20:32 D-Dimer 526.09 ng/mlDDU (0-234) H 03/23/19 00:33 Sodium 137 mmol/L (137-145) 03/25/19 05:42 Potassium 4.5 mmol/L (3.6-5.0) 03/25/19 05:42 Chloride 99.0 mmol/L (98-107) 03/25/19 05:42 Carbon Dioxide 18 mmol/L (22-30) L 03/25/19 05:42 Anion Gap 25 mmol/L 03/25/19 05:42 BUN 64 mg/dL (9-20) H 03/25/19 05:42 Creatinine 5.6 mg/dL (0.8-1.5) H 03/25/19 05:42 Estimated GFR 13 ml/min 03/25/19 05:42 BUN/Creatinine Ratio 11 % 03/25/19 05:42 Glucose 154 mg/dL (75-100) H 03/25/19 05:42 POC Glucose 186 (70-105) H 03/24/19 22:03 Calcium 6.6 mg/dL (8.4-10.2) L 03/25/19 05:42 Phosphorus 4.80 mg/dL (2.5-4.5) H 03/25/19 05:42 Iron 41 ug/dL (49-181) L 03/25/19 05:42 TIBC 245 mcg/dL (250-450) L 03/25/19 05:42 % Saturation 16.73 % 03/25/19 05:42 Transferrin 196 mg/dl (180-329) 03/25/19 05:42 Ferritin 326.6 ng/mL (13.0-400.0) 03/25/19 05:42 Total Creatine Kinase 860 units/L (55-170) H 03/23/19 06:14 CK-MB (CK-2) 8.5 ng/mL (0.0-4.0) H 03/23/19 06:14 CK-MB (CK-2) Rel Index 0.9 (0-4) 03/23/19 06:14 Troponin T 0.141 ng/mL (0.00-0.029) H* 03/23/19 06:14 NT-Pro-B Natriuret Pep 466.3 pg/mL (0-900) 03/22/19 20:32 Triglycerides 184 mg/dL (2-149) H 03/22/19 20:32 Cholesterol 118 mg/dL (50-199) 03/22/19 20:32 LDL Cholesterol Direct 69 mg/dL (50-130) 03/22/19 20:32 HDL Cholesterol 33 mg/dL (40-59) L 03/22/19 20:32 Cholesterol/HDL Ratio 3.57 % 03/22/19 20:32 PTH Intact 266.0 pg/mL (15-65) H 03/25/19 05:42 Active Medications - Current Medications Current Medications: Generic Name Dose Route Start Last Admin Trade Name Freq PRN Reason Stop Dose Admin Acetaminophen 650 mg 03/22/19 22:41 Tylenol PO Q4H PRN Pain MILD(1-3)/Fever >100.5/VIDES Aspirin 81 mg 03/23/19 10:00 03/25/19 10:26 Baby Aspirin PO 81 mg QDAY [facility] Administration Calcitriol 0.5 mcg 03/24/19 21:00 03/25/19 10:26 Rocaltrol PO 0.5 mcg QDAY [facility] Administration Dextrose 50 ml 03/23/19 08:47 D50w (25gm) Syringe IV Q30MIN PRN Hypoglycemia Protocol Enoxaparin Sodium 30 mg 03/23/19 10:00 03/25/19 10:26 Enoxaparin SUB-Q Not Given QDAY [facility] Ergocalciferol 50,000 unit 03/31/19 10:00 Vitamin D2 PO [place] [facility] Furosemide 40 mg 03/23/19 06:00 03/25/19 05:26 Lasix IV 40 mg BID@0600,1800 [facility] Administration Hydralazine HCl 50 mg 03/24/19 14:00 03/25/19 05:27 Apresoline PO 50 mg Q8HR [facility] Administration Insulin Human Regular 0 units 03/23/19 11:30 03/25/19 08:27 Humulin R SUB-Q Not Given ACHS [facility] Protocol Metoprolol Tartrate 25 mg 03/23/19 10:00 03/25/19 10:26 Metoprolol PO 25 mg BID [facility] Administration Ondansetron HCl 4 mg 03/22/19 22:41 Zofran IV Q8H PRN Nausea And Vomiting Sodium Chloride 10 ml 03/23/19 10:00 03/24/19 21:23 Sodium Chloride Flush Syringe 10 Ml IV 10 ml BID [facility] Administration Sodium Chloride 10 ml 03/22/19 22:41 Sodium Chloride Flush Syringe 10 Ml IV PRN PRN LINE FLUSH
--- NOTE | 2019-03-25 13:52 | Discharge Summary ---
Providers - Providers Date of Admission: 03/22/19 22:35 Date of discharge: 03/25/19 Attending physician: KADE DWYER 03/22/19 22:41 Consult to Physician [CONS] Routine Comment: Consulting Provider: GAB FLORES Physician Instructions: Reason For Exam: chf/cp 03/24/19 08:55 Consult to Physician [CONS] Routine Comment: Consulting Provider: ILAN CORREA Physician Instructions: Reason For Exam: esrd, preparing for HD Primary care physician: SPECIALIST ICU Hospitalization Condition: Stable Hospital course: Patient is a 53-year-old man with a history of hypertension, diabetes, CHF, chronic kidney disease, obesity comes emergency room with complaints of shortness of breath and chest pain that started today. Patient recently traveled from [place], he has not taken his Lasix in 3 days because of the inconvenience of increased urination. CHF exacerbation, acute on chronic, diastolic Diurese with IV Lasix, start beta-velma, aspirin No IVANA inhibitor secondary to renal dysfunction, unknown renal baseline Check cardiac enzymes, d-dimer echo Monitor I's and O's, daily weights Chest pain with elevated troponin c/w NSTEMI Consult cardiology, continue to monitor cardiac enzymes stress test on MONDAY per Cardiology Hyperkalemia Status post IV Lasix, hold Kayexalate for now Monitor potassium level Hypertension Continue antihypertensives Diabetes mellitus Check fingersticks initiate insulin sliding scale Restart outpatient medication Chronic kidney disease stage 3, Monitor renal function Obesity DVT prophylaxis Disposition: continue inpatient care, STRESS TEST today, but patient changed his mind. weaned off 2 liters nasal canula patient refuses stress test, counseling against this including increase risk, patient voiced understanding but still want to leave A. He is from [facility] and he wants to start HD there and get testing there. He is just visiting. Disposition: - LEFT AGAINST MED ADVICE Time spent for discharge: 32 minutes Core Measure Documentation - Palliative Care Palliative Care/ Comfort Measures: Not Applicable - Core Measures Any of the following diagnoses?: heart failure - VTE Discharge Requirements Deep Vein Thrombosis/Pulmonary Embolism Present on Admission: No Has pt received <5 days of overlap therapy or INR<2.0: No Anticoagulant overlap therapy prescribed at discharge: No Contraindication No Overlap Therapy order at DC: Not Indicated - Heart Failure Discharge Requirements IVANA/ARB for LVSD if EF <40%: No Reason for no IVANA/ARB: Renal impairment Beta velma at discharge: Yes Exam - Physical Exam Narrative exam: Gen: WDWN, NAD, Awake, Alert, Orientated, bmi 41.1 HEENT: NCAT, EOMI, PERRL, OP Clear Neck: supple, no adenopathy, no thyromegaly, no JVD CVS/Heart: RRR, normal S1S2, pulses present bilaterally Chest/Lungs: diminished bs bilateral, Symmetrical chest expansion, good air entry bilaterally GI/Abdomen: soft, large protuberant abdomen, good bowel sounds, no guarding or rebound /Bladder: no suprapubic tenderness, no CVA or paraspinal tenderness Extermity/Skin: trace leg edema, no obvious rash MSK: FROM x 4 Neuro: CN 2-12 grossly intact, no new focal deficits Psych: calm - Constitutional Vitals: Temp Pulse Resp BP Pulse Ox 98.5 F 79 18 156/78 94 03/25/19 08:11 03/25/19 08:11 03/25/19 08:11 03/25/19 08:11 03/25/19 08:11 Plan Activity: other (no strenous activity unless cleared by Financial Assistance Specialist) Diet: low salt Follow up with: PRIMARY CARE, [Primary Care Provider] - 3-5 Days ILAN CORREA MD [Staff Physician] - 7 Days GAB FLORES MD [Staff Physician] - 7 Days Forms: AMA Form Prescriptions: hydrALAZINE [Apresoline TAB] 2 tab PO TID #90 tablet Aspirin [Aspirin BABY CHEW TAB] 81 mg PO QDAY #30 tab.chew Furosemide [Lasix TAB] 40 mg PO QDAY #30 tablet Furosemide [Lasix TAB] 40 mg PO BID #60 tab Metoprolol [Lopressor TAB] 25 mg PO BID #60 tablet Calcitriol [Rocaltrol] 0.5 mcg PO QDAY #30 capsule
--- NOTE | 2019-03-25 14:03 | Progress Note ---
Assessment and Plan Pt refused stress test this AM and signed out AMA. He states he wishes to return to [place] where he has an appt with his casework manager on Monday. The patient has been seen in conjunction with Dr. Albarran who agrees with the assessment and plan of care. - Patient Problems (1) NSTEMI (non-ST elevated myocardial infarction) Current Visit: Yes Status: Acute (2) Acute on chronic heart failure Current Visit: Yes Status: Acute (3) Chest pain Current Visit: Yes Status: Acute (4) Noncompliance with medication regimen Current Visit: Yes Status: Acute (5) Renal insufficiency Current Visit: Yes Status: Acute (6) Obesity, morbid Current Visit: Yes Status: Chronic (7) Diabetes Current Visit: Yes Status: Chronic (8) Hypertension Current Visit: Yes Status: Chronic Subjective Date of service: 03/25/19 Principal diagnosis: cp Interval history: pt sitting up at bedside, no current complaints, reports resolution of cp. refusing stress test today. refusing to wear telemetry. signing out AMA. Objective Last Vital Signs Temp 98.5 F 03/25/19 08:11 Pulse 79 03/25/19 08:11 Resp 18 03/25/19 08:11 BP 156/78 03/25/19 08:11 Pulse Ox 94 03/25/19 08:11 - Physical Examination General: No Apparent Distress HEENT: Positive: PERRL Neck: Positive: neck supple Cardiac: Positive: Reg Rate and Rhythm, S1/S2 Lungs: Positive: Decreased Breath Sounds Neuro: Positive: Grossly Intact Abdomen: Positive: Soft /Rectal: Other (deferred) Skin: Positive: Clear Musculoskeletal: Normal Range of Motion Extremities: Present: edema, +1 Edema - Labs and Meds CBC 03/25/19 Range/Units 05:42 WBC 6.7 (4.5-11.0) K/mm3 RBC 3.88 (3.65-5.03) M/mm3 Hgb 10.1 L (11.8-15.2) gm/dl Hct 30.8 L (35.5-45.6) % Plt Count 330 (140-440) K/mm3 Lymph # 1.4 (1.2-5.4) K/mm3 [place] # 0.5 (0.0-0.8) K/mm3 Eos # 0.2 (0.0-0.4) K/mm3 Baso # 0.1 (0.0-0.1) K/mm3 Comprehensive Metabolic Panel 03/25/19 Range/Units 05:42 Sodium 137 (137-145) mmol/L Potassium 4.5 (3.6-5.0) mmol/L Chloride 99.0 (98-107) mmol/L Carbon Dioxide 18 L (22-30) mmol/L BUN 64 H (9-20) mg/dL Creatinine 5.6 H (0.8-1.5) mg/dL Glucose 154 H (75-100) mg/dL Calcium 6.6 L (8.4-10.2) mg/dL - Imaging and Cardiology EKG: report reviewed Echo: report reviewed (03/23/19: EF 55%, LA dilation, LVH) Repolarization changes or abnormalities: nonspecific abnormality, ST segment, and/or T wave
--- NOTE | 2019-03-25 15:31 | Progress Note ---
Assessment and Plan - Patient Problems (1) Chronic kidney disease, stage V Status: Acute Plan to address problem: Chronic kidney disease stage V Nephrology follow-up in [place] with Dr. fernandez I explained the need for him to make a decision regarding type of dialysis Also discussed extensively symptoms renal failure He has a follow-up appointment with his financial services technician in the next few days Continue diuretics (2) Acute on chronic heart failure Status: Acute Plan to address problem: Acute and chronic heart failure in the setting of renal failure Echo reviewed with elevated left atrial pressures Continue diuretics (3) Chest pain Status: Acute Plan to address problem: Chest pain status post evaluation by cardiology Follow-up with cardiology (4) Metabolic acidosis Status: Acute Plan to address problem: Metabolic acidosis secondary to chronic kidney disease Continue diuresis Subjective Principal diagnosis: cp Interval history: 53-year-old gentleman with chronic kidney disease stage V, congestive heart failure hypertension follows with financial services technician in [place] abuse and complains of chest pain or shortness of breath He is yet to start dialysis in his any nausea or vomiting denies any itching denies any change in appetite denies any weight loss he reports shortness of breath is much improved Objective - Vital Signs Vital signs: Vital Signs - 12hr 03/25/19 03/25/19 03/25/19 05:08 05:27 08:00 Temperature 98.6 F Pulse Rate 82 77 80 Respiratory 22 Rate Blood Pressure 146/74 O2 Sat by Pulse 91 94 Oximetry 03/25/19 08:11 Temperature 98.5 F Pulse Rate 79 Respiratory 18 Rate Blood Pressure 156/78 O2 Sat by Pulse 94 Oximetry - General Appearance General appearance: well-developed, well-nourished EENT: ATNC, PERRL Neck: no JVD Respiratory: Present: Clear to Ascultation Cardiology: regular, S1S2 Gastrointestinal: normal, normoactive bowel sounds Integumentary: no rash Neurologic: alert and oriented x3, CN 3-12 intact Psychiatric: mood/affect appropriate - Lab 03/25/19 05:42 03/25/19 05:42 Most recent lab results Calcium 6.6 mg/dL (8.4-10.2) L 03/25/19 05:42 Phosphorus 4.80 mg/dL (2.5-4.5) H 03/25/19 05:42 - Imaging Chest x-ray: image reviewed (chest x-ray revealed some congestion) Medications & Allergies - Medications Allergies/Adverse Reactions: Allergies No Known Allergies Allergy (Verified 03/22/19 22:37) Home Medications: Home Medications Medication Instructions Recorded Confirmed Last Taken Type Acetaminophen [Acetaminophen TAB] 2 tab PO Q4H PRN #15 tablet 03/25/19 Unknown Rx Aspirin [Aspirin BABY CHEW TAB] 81 mg PO QDAY #30 tab.chew 03/25/19 Unknown Rx Calcitriol [Rocaltrol] 0.5 mcg PO QDAY #30 capsule 03/25/19 Unknown Rx Ergocalciferol [Vitamin D2] 50,000 unit PO Camarena #4 capsule 03/25/19 Unknown Rx Furosemide [Lasix TAB] 40 mg PO BID #60 tab 03/25/19 Unknown Rx Furosemide [Lasix TAB] 40 mg PO QDAY #30 tablet 03/25/19 Unknown Rx Metoprolol [Lopressor TAB] 25 mg PO BID #60 tablet 03/25/19 Unknown Rx hydrALAZINE [Apresoline TAB] 2 tab PO TID #90 tablet 03/25/19 Unknown Rx
[2019-03-31] MEDS ORDERED: ERGOCALCIFEROL (VIT D2) 50,000 UNIT CAP PO SCH (10:00)
== END 2019-03-25 14:35 | disposition left against medical advice (07) | DRG 280 ==
LOC: ED 18:57 → 4A 22:35
PROVIDERS: ADMIT Internal Medicine; ATTEND Internal Medicine
DX: I21.4 Non-ST elevation (NSTEMI) myocardial infarction (principal); I50.33 Acute on chronic diastolic (congestive) heart failure; E87.2 Acidosis; N18.5 Chronic kidney disease, stage 5; Z68.41 Body mass index [BMI] 40.0-44.9, adult; I13.2 Hypertensive heart and chronic kidney disease with heart failure and with stage 5 chronic kidney disease, or end stage renal disease; E66.01 Morbid (severe) obesity due to excess calories; R79.89 Other specified abnormal findings of blood chemistry; E87.5 Hyperkalemia; E11.22 Type 2 diabetes mellitus with diabetic chronic kidney disease; D63.1 Anemia in chronic kidney disease; E83.51 Hypocalcemia; Z91.14 Patient's other noncompliance with medication regimen; Z82.49 Family history of ischemic heart disease and other diseases of the circulatory system; Z83.3 Family history of diabetes mellitus
CPT/HCPCS: 36415; 71046; 80048; 80061; 82550; 82553; 82728; 82962; 83550; 83880; 83970; 84100; 84484; 85025; 85379; 85610; 93005; 93010; 93306; 94760; 96374; G0378; J1650; J1815; J1940; J2785